=== PATIENT | female | born 1990 | race Caucasian/White ===

== ENCOUNTER 2017-01-03 15:52 | Inpatient (IN) | payer OTHER ==
[2017-01-03] MEDS ORDERED: Magnesium Sulf 4 GM/100 ML IV* 4,000 MG/100 ML BAG IVPB ONE (16:30)
[2017-01-03 17:29] LABS: Hematocrit 36 % (35-47); Hemoglobin 11.9 g/dl (12.0-16.0); Mean Corpuscular HGB Conc 33 g/dl (31-36); Mean Corpuscular Hemoglobin 30 pg (27-31); Mean Corpuscular Volume 90 fL (80-97); Mean Platelet Volume 9 um3 (7.4-10.4); Red Blood Count 4.02 10^6/ul (4.0-5.4); Red Cell Distribution Width 13 % (10.5-15); White Blood Count 16.2 10^3/ul (3.5-10.8)
[2017-01-03] MEDS ORDERED: fentaNYL* 50 MCG/ML 2 ML VIAL (100 MCG VIAL) ONE (23:38)
[2017-01-04] MEDS ORDERED: Famotidine TAB* 20 MG PO PRN (00:06)
[2017-01-04] MEDS ORDERED: EPHEDrine (Pressors)* 50 MG/ML VIAL IV PUSH PRN ×2 (00:06)
[2017-01-04] MEDS ORDERED: Phenylephrine IV* 40 MCG/ML 10 ML SYRINGE IV PUSH PRN ×2 (00:06)
[2017-01-04] MEDS ORDERED: Sodium Citrate/Citric Acid* 15 ML UDC PO PRN (00:06)
[2017-01-04] MEDS ORDERED: OBEPIDURAL* 250 ML EPIDURAL SCH (01:00)
[2017-01-04] MEDS ORDERED: Glycerin ADULT SUPP PR PRN (02:03)
[2017-01-04] MEDS ORDERED: Witch Hazel PAD* JAR TOPICAL PRN (02:03)
[2017-01-04] MEDS ORDERED: Acetaminophen TAB* 325 MG PO PRN (02:03)
[2017-01-04] MEDS ORDERED: Dibucaine 1% 28.35 GM TUBE PR PRN (02:03)
[2017-01-04] MEDS ORDERED: Oxytocin in LR* 20 UNITS/1,000 ML BAG IVPB SCH (03:00)
[2017-01-04] MEDS ORDERED: OXYTOCIN* 10 UNITS/ML 1 ML VIAL ONE (06:28)
[2017-01-04] MEDS ORDERED: Simethicone CHEW TAB* 80 MG PO SCH (08:30)
[2017-01-04] MEDS: Docusate CAP* 100 MG PO SCH ×3 (09:30→20:06)
[2017-01-04] MEDS: Ibuprofen TAB* 600 MG PO PRN (15:45)
[2017-01-05] MEDS: Ibuprofen TAB* 600 MG PO PRN ×3 (01:27→22:09)
[2017-01-05 07:24] LABS: Hematocrit 31 % (35-47); Hemoglobin 10.4 g/dl (12.0-16.0); Mean Corpuscular HGB Conc 33 g/dl (31-36); Mean Corpuscular Hemoglobin 30 pg (27-31); Mean Corpuscular Volume 91 fL (80-97); Mean Platelet Volume 9 um3 (7.4-10.4); Red Blood Count 3.44 10^6/ul (4.0-5.4); Red Cell Distribution Width 14 % (10.5-15)
[2017-01-05] MEDS ORDERED: Ferrous Gluconate TAB* 324 MG TAB PO SCH (09:00)
[2017-01-05] MEDS: Docusate CAP* 100 MG PO SCH ×2 (09:00→22:09)
[2017-01-05 19:34] VITALS: BP 111/64
[2017-01-06] MEDS: Ibuprofen TAB* 600 MG PO PRN ×2 (05:28→12:04)
== END 2017-01-06 12:18 | disposition home or self-care (01) | DRG 560 ==
LOC: MCHOBOUT 15:52 → MCHOB 16:42
PROVIDERS: ADMIT Midwife; ATTEND Midwife
PROC: 10E0XZZ Delivery of Products of Conception, External Approach (ICD-10-PCS; principal; 2017-01-04)
PROC: 3E033VJ Introduction of Other Hormone into Peripheral Vein, Percutaneous Approach (ICD-10-PCS; 2017-01-04)
PROC: 10907ZC Drainage of Amniotic Fluid, Therapeutic from Products of Conception, Via Natural or Artificial Opening (ICD-10-PCS; 2017-01-04)
DX: O99.824 Streptococcus B carrier state complicating childbirth (principal); Z37.0 Single live birth; Z3A.39 39 weeks gestation of pregnancy
CPT/HCPCS: 36415; 85025; 86850; 86900; 86901; A9270-GY; J2590; J3010